=== PATIENT | male | born 1980 | race Caucasian/White ===

== ENCOUNTER 2017-04-29 20:51 | Emergency (ER) | payer OTHER ==
[~2017-04-29] VITALS: Ht 180.3 cm; Wt 87.0 kg
[2017-04-29 21:03] VITALS: TEMP 36.9; Ht 180.3 cm; Wt 87.0 kg
[2017-04-29] MEDS ORDERED: SULF800T23 PO (21:30)
[2017-04-29] MEDS ORDERED: LSN20 PO (21:30)
--- NOTE | 2017-04-29 21:53 | EMERGENCY ROOM VISIT NOTE ---
History Report prepared by Arsh: Mathew Wayne Under the Supervision of: Dr. Froy Miles M.D. First contact with patient: 21:25 Chief Complaint: WOUND INFECTION Stated Complaint: WOUND INFECTION LF LEG,BRUISES ALL OVER BODY Nursing Triage Summary: Pt reports he developed red raised area on left millard, area began to swell and blister. To [facility] and placed on Bactrim 04/25/17 for cellulitis. Today, pt reports the entire millard is reddened and warm to the touch. Red "bullseye" rash to back, chest, arms, and legs that started this AM. History of Present Illness The patient is a 37 year old male who presents to the Emergency Room with complaints of a constant, global rash beginning this evening. The patient states that he was on vacation, and 6 days ago he hit his millard on shopping cart. He notes that the following day a bruise formed that was dark and resembled a burn. The patient reports that 4 days ago he returned to work and was told to cover it so it would not get infection. He states that later that day the rash on his millard began to itch and develop erythema. The patient notes that he went to [facility] yesterday and was told he had an infected wound. He report that he was given Bactrim, and he had his Tetanus shot updated. The patient states that this evening his rash spread to his torso. The patient denies fevers, joint pain, being exposed to ticks, headaches, shortness of breath, and trouble swallowing. He notes that he also takes Lisinopril. Source of History: patient, spouse/significant other Onset: this evening Position: other (global) Quality: other (rash) Timing: constant Associated Symptoms: No fevers, No headache, No SOB Note: The patient denies joint pain, being exposed to ticks, and trouble swallowing. Review of Systems See HPI for pertinent positives & negatives. A total of 10 systems reviewed and were otherwise negative. Past Medical & Surgical Medical Problems: (1) HTN (hypertension) Old medical records were reviewed. Nurse's notes were reviewed and I agree with. Mild hypertension. Otherwise no chronic medical problems Family History FH: heart disease FH: lung disease FHx: cancer Hypertension Social History Smoking Status: Former Smoker Alcohol Use: occasionally Housing Status: lives with significant other Occupation Status: employed Current/Historical Medications Scheduled Cephalexin Monohydrate (Keflex), 500 MG PO QID Doxycycline Hyclate (Vibramycin), 100 MG PO BID Lisinopril (Lisinopril), 20 MG PO QAM Sulfa/Trimethoprim (Bactrim Ds 800MG/160MG), 1 TAB PO BID Allergies Coded Allergies: No Known Allergies (Unverified , 04/29/17) Physical Exam Vital Signs Date Time Temp Pulse Resp B/P (MAP) Pulse Ox O2 Delivery O2 Flow Rate FiO2 04/30/17 00:23 79 17 132/83 96 Room Air 04/29/17 22:31 81 16 142/82 95 Room Air 04/29/17 21:03 36.9 92 18 144/87 97 Room Air Physical Exam General: Young male, non-toxic, no acute distress, breathing comfortably on room air. Normal speech HEENT: Normal cephalic atraumatic. Pupils are equal round and reactive to light. Extraocular movements are intact. Oropharynx is pink with moist mucous membranes. No swelling of the mouth lips or tongue. Healing incision on his neck from a cyst removal - no drainage or infection. Neck: Supple with a midline trachea. No meningeal signs or stiffness, no JVD or bruits. No Stridor. Chest: Clear to auscultation bilaterally. No wheezes or rhonchi. No increased work of breathing. Heart: regular rate and rhythm. Abdomen: Soft nontender, nondistended without rebound guarding or rigidity. Extremities: No cyanosis clubbing or edema. No calf tenderness or assymetry Spine/Back. Non tender to palpation. No CVA tenderness Skin: Scaling area in the left millard with clear drainage, mildly localized erythema, non-tender. Several large circular erythema, which are consistent with erythema migrans. He also has several other small red spots. No vasculitic lesions. Neurologic exam: Cranial nerves two through 12 are intact. Motor and sensation are intact and symmetrical throughout. Medical Decision & Procedures Laboratory Results 04/29/17 22:00 Red Blood Count 4.97, Mean Corpuscular Volume 85.3, Mean Corpuscular Hemoglobin 30.6, Mean Corpuscular Hemoglobin Concent 35.8, Mean Platelet Volume 8.8, Neutrophils (%) (Auto) 75.5, Lymphocytes (%) (Auto) 16.0, Monocytes (%) (Auto) 7.2, Eosinophils (%) (Auto) 0.6, Basophils (%) (Auto) 0.5, Neutrophils # (Auto) 8.25, Lymphocytes # (Auto) 1.75, Monocytes # (Auto) 0.79, Eosinophils # (Auto) 0.07, Basophils # (Auto) 0.06 04/29/17 22:00 Test 04/29/17 22:00 White Blood Count 10.94 K/uL (4.8-10.8) Red Blood Count 4.97 M/uL (4.7-6.1) Hemoglobin 15.2 g/dL (14.0-18.0) Hematocrit 42.4 % (42-52) Mean Corpuscular Volume 85.3 fL (80-100) Mean Corpuscular Hemoglobin 30.6 pg (25-34) Mean Corpuscular Hemoglobin Concent 35.8 g/dl (32-36) Platelet Count 355 K/uL (130-400) Mean Platelet Volume 8.8 fL (7.4-10.4) Neutrophils (%) (Auto) 75.5 % Lymphocytes (%) (Auto) 16.0 % Monocytes (%) (Auto) 7.2 % Eosinophils (%) (Auto) 0.6 % Basophils (%) (Auto) 0.5 % Neutrophils # (Auto) 8.25 K/uL (1.4-6.5) Lymphocytes # (Auto) 1.75 K/uL (1.2-3.4) Monocytes # (Auto) 0.79 K/uL (0.11-0.59) Eosinophils # (Auto) 0.07 K/uL (0-0.5) Basophils # (Auto) 0.06 K/uL (0-0.2) RDW Standard Deviation 40.7 fL (36.4-46.3) RDW Coefficient of Variation 13.1 % (11.5-14.5) Immature Granulocyte % (Auto) 0.2 % Immature Granulocyte # (Auto) 0.02 K/uL (0.00-0.02) Erythrocyte Sedimentation Rate 19 mm/hr (0-14) Anion Gap 13.0 mmol/L (3-11) Est Creatinine Clear Calc Drug Dose 97.9 ml/min Estimated GFR () 98.9 Estimated GFR (Non- 85.3 BUN/Creatinine Ratio 12.2 (10-20) Calcium Level 9.2 mg/dl (8.5-10.1) Total Bilirubin 1.0 mg/dl (0.2-1) Direct Bilirubin mg/dl (0-0.2) Aspartate Amino Transf (AST/SGOT) 37 U/L (15-37) Alanine Aminotransferase (ALT/SGPT) 50 U/L (12-78) Alkaline Phosphatase 73 U/L (45-117) Total Protein 7.8 gm/dl (6.4-8.2) Albumin 3.9 gm/dl (3.4-5.0) Lipase 83 U/L (73-393) Chemistry Specimen Hemolysis Lyme Disease IgG Antibody POS (NEG) Laboratory studies as stated above per my review. Medications Administered Medications (Trade) Dose Ordered Sig/Cadence Route Start Time Stop Time Status Last Admin Dose Admin Ceftriaxone Sodium (Rocephin Inj) 1 gm NOW STAT IV 04/29/17 23:50 04/29/17 23:51 DC 04/29/17 23:56 1 GM Doxycycline Hyclate (Vibramycin Cap) 100 mg ONE ONCE PO 04/30/17 00:00 04/30/17 00:01 DC 04/29/17 23:55 100 MG ED Course 8: Past medical records reviewed. The patient was evaluated in room A11B, and a complete history and physical examination were performed. 2310: I reevaluated the patient, and he is resting comfortably. 2349: I reevaluated the patient and discussed his current exam findings. 2350: Ordered Rocephin Inj 1gm IV 0000: Ordered Vibramycin Cap 100mg PO 0042: Upon reevaluation, the patient is resting comfortably. I discussed the results and treatment plan with him. He verbalized agreement of the treatment plan. The patient was discharged home. Medical Decision Differential diagnosis includes: cellulitis, Lyme's disease, infection, reaction to antibiotics Medication Reconciliation: I attest that I have personally reviewed the patient' s current medication list. Blood pressure Screening: Patient was found to have normal blood pressure on screening and does not require follow-up. This patient comes in as described above. He was placed in room A 11. His here for treatment and evaluation of a rash. This apparent this started on his millard but today he noticed a diffuse rash. His rash actually looks like erythema migrans he however does not have any other fever or chills or joint aches. He does frequently experienced tick bites he tells me. Multiple blood testing was obtained. He has no fevers . White count and sedimentation rate are mildly elevated however. The rest of his blood work is unremarkable with exception of a positive Lyme titer. I do think he needs to be treated for Lyme disease. I'm not sure that explains all of his symptoms. He may have a cellulitis in his millard and also some of the other rash may actually be related to Bactrim. Bactrim can sometimes give unusual looking rashes as well. I do not think the Bactrim is helping him so have him stop the Bactrim. He was given Rocephin 1 g IV. He will be sent home on a course of doxycycline and was given the first dose here. He will be given a three-week course. I also put him on Keflex for further cellulitis coverage. This does not cover MRSA but he does not seem to be getting better with the Bactrim. I do not think this is likely MRSA in his millard. I do think the he needs close follow-up with his doctor tomorrow for recheck and return to ER if: Fever, worsening of symptoms, increasing pain or swelling or redness, any new problems or concerns. We did outline the redness in addition so this can be observed and again was given a dose of IV antibiotics here as well as blood cultures were obtained. The patient and his were happy with plan and he was discharged home. Impression Primary Impression: Lyme disease Additional Impressions: Rash Cellulitis Scribe Attestation The scribe's documentation has been prepared under my direction and personally reviewed by me in its entirety. I confirm that the note above accurately reflects all work, treatment, procedures, and medical decision making performed by me. Departure Information Dispostion Home / Self-Care Prescriptions Cephalexin Monohydrate (Keflex) 500 Mg Cap 500 MG PO QID for 10 Days, #40 CAP Prov: Froy Miles M.D. 04/29/17 Doxycycline Hyclate (VIBRAMYCIN) 100 Mg Cap 100 MG PO BID for 21 Days, #42 CAP Prov: Froy Miles M.D. 04/29/17 Referrals Mendoza Baer III, M.D. (PCP) Forms HOME CARE DOCUMENTATION FORM, IMPORTANT VISIT INFORMATION, WORK / SCHOOL INSTRUCTIONS Patient Instructions My [email or web address] Additional Instructions Rest. Drink plenty of fluids. Return if: Worsening of symptoms, fever or chills, increasing redness or warmth , any new problems or concerns Stop the Bactrim(sulfamethoxazole-trimethoprim) some of the rash may be from that and it possibly could be allergic. Start doxycycline 100 mg twice a day for 3 weeks treatment for Lyme Also use Keflex 500 mg, 4 times a day for 10 days for skin infection Follow-up with your doctor in 1-2 days for recheck. Return sooner if symptoms worsen Problem Qualifiers
[2017-04-29 22:19] LABS: BASO % 0.5 %; BASO ABS # 0.06 K/uL (0-0.2); COMPLETE YES; EOS % 0.6 %; HEMATOCRIT 42.4 % (42-52); IG% 0.2 %; LYMPH ABS # 1.75 K/uL (1.2-3.4); MEAN CELL VOLUME 85.3 fL (80-100); MEAN CORPUSCULAR HEMOGLOBIN 30.6 pg (25-34); MEAN CORPUSCULAR HGB CONC 35.8 g/dl (32-36); MEAN PLATELET VOLUME 8.8 fL (7.4-10.4); MONO % 7.2 %; NEUT % 75.5 %; PLATELET COUNT 355 K/uL (130-400); RED BLOOD COUNT 4.97 M/uL (4.7-6.1); WHITE BLOOD COUNT 10.94 K/uL (4.8-10.8)
[2017-04-29 22:49] LABS: ALKALINE PHOSPHATASE 73 U/L (45-117); ALT/SGPT 50 U/L (12-78); AST/SGOT 37 U/L (15-37); BLOOD UREA NITROGEN 13 mg/dl (7-18); BUN/CREATININE RATIO 12.2 (10-20); CARBON DIOXIDE 21 mmol/L (21-32); CHLORIDE 100 mmol/L (98-107); GLUCOSE 93 mg/dl (70-99); POTASSIUM 3.9 mmol/L (3.5-5.1); SODIUM 134 mmol/L (136-145)
[2017-04-29 23:08] LABS: CALCIUM 9.2 mg/dl (8.5-10.1)
[2017-04-29 23:15] LABS: LYME DISEASE AB IGG POS (NEG); LYME DISEASE AB IGM POS (NEG)
[2017-04-29] MEDS ORDERED: CEFTRIAXONE SOD INJ 1 GM ADDVIAL IV STA (23:50)
[2017-04-29] MEDS ORDERED: DOXY100C2 PO (23:55)
[2017-04-29] MEDS ORDERED: CEPH500C PO (23:55)
[2017-04-30] MEDS ORDERED: DOXYCYCLINE HYCLATE 100 MG CAP PO ONE
[2017-04-30 00:23] VITALS: BP 132/83; PULSE 79; O2SAT 96
[2017-05-03 13:12] LABS: 18KDIGG BAND NONREACTIVE (NONREACTIVE); 23KDIGG BAND REACTIVE (NONREACTIVE); 23KDIGM BAND REACTIVE (NONREACTIVE); 28KDIGG BAND NONREACTIVE (NONREACTIVE); 30KDIGG BAND NONREACTIVE (NONREACTIVE); 39KDIGG BAND NONREACTIVE (NONREACTIVE); 39KDIGM BAND REACTIVE (NONREACTIVE); 41KDIGG BAND REACTIVE (NONREACTIVE); 41KDIGM BAND REACTIVE (NONREACTIVE); 45KDIGG BAND REACTIVE (NONREACTIVE); 58KDIGG BAND NONREACTIVE (NONREACTIVE); 66KDIGG BAND REACTIVE (NONREACTIVE); 93KDIGG BAND NONREACTIVE (NONREACTIVE)
== END 2017-04-30 00:48 | disposition home or self-care (01) ==
LOC: C.EDB 20:52 → C.EDA 04-30 00:48
DX: A69.20 Lyme disease, unspecified (principal); R21 Rash and other nonspecific skin eruption; L03.90 Cellulitis, unspecified; I10 Essential (primary) hypertension; Z82.49 Family history of ischemic heart disease and other diseases of the circulatory system; Z87.891 Personal history of nicotine dependence